=== PATIENT | female | born 1990 | race Caucasian/White ===

== ENCOUNTER 2019-03-07 14:09 | Outpatient (RCR) | payer OTHER, SELFPAY ==
[2019-03-09 14:13] LABS: Beta HCG Quantitative 204.19 mIU/ML
== END 2019-06-05 23:59 | disposition home or self-care (01) ==
LOC: ANHLAB 14:09
PROVIDERS: Visit Provider Obstetrics & Gynecology
DX: O20.0 Threatened abortion (principal); Z3A.00 Weeks of gestation of pregnancy not specified
CPT/HCPCS: 36415; 84702; 86850